=== PATIENT | male | born 1965 | race African-American/Black ===

== ENCOUNTER 2019-07-24 12:54 | Emergency (ER) | payer BC, OTHER ==
[~2019-07-24] VITALS: Ht 175.3 cm; Wt 102.0 kg
[2019-07-24 17:22] VITALS: BP 155/66
== END 2019-07-24 17:23 | disposition home or self-care (01) ==
LOC: ER 12:54
DX: S02.2XXA Fracture of nasal bones, initial encounter for closed fracture (principal); S20.20XA Contusion of thorax, unspecified, initial encounter; H11.33 Conjunctival hemorrhage, bilateral; Y04.0XXA Assault by unarmed brawl or fight, initial encounter; Y93.89 Activity, other specified; Y92.018 Other place in single-family (private) house as the place of occurrence of the external cause
CPT/HCPCS: 70486; 71101; 99284